=== PATIENT | male | born 1945 | race Caucasian/White ===

== ENCOUNTER 2018-05-16 11:55 | Emergency (ER) | payer MEDICARE ==
[~2018-05-16] VITALS: Ht 172.7 cm; Wt 63.6 kg
[~2018-05-16 11:55] MED LIST: CALC600T12 PO; CHOL2000 PO; FAMO-1 PO; MAGN125C PO; MULT-1085 PO; SIMV10TA6 PO
[2018-05-16] MEDS ORDERED: PANT-47 PO (13:22)
[2018-05-16] MEDS ORDERED: CALCIUM CITRATE (13:22)
[2018-05-16] MEDS ORDERED: MAGN296S68 CORPAK (13:23)
[2018-05-16] MEDS ORDERED: ZOLE5INF7 IV (13:24)
[2018-05-16] MEDS ORDERED: TEST5GEL2 TOP (13:26)
[2018-05-16] MEDS ORDERED: cyclobenzaprine 10mg tablet PO ONE (14:35)
[2018-05-16] MEDS ORDERED: ketorolac trometh inj. 60 MG/2 ML VIAL IM ONE (14:35)
[2018-05-16 15:06] VITALS: BP 155/89
[2018-05-16] MEDS ORDERED: CYCL-1 PO (15:30)
== END 2018-05-16 15:52 | disposition home or self-care (01) ==
LOC: ER 11:56
DX: M25.552 Pain in left hip (principal)
CPT/HCPCS: 72192; 73502; 96372; 99284; J1885

== ENCOUNTER 2019-07-10 06:39 | Day surgery (SDC) | payer MEDICARE ==
[~2019-07-10] VITALS: Ht 170.2 cm; Wt 59.9 kg
[~2019-07-10 06:39] MED LIST changes: +CALC-854 PO; -CALC600T12 PO; +CHOL10002 PO; -CHOL2000 PO; +DOCU-148 PO; +FISH1CAP15 PO; +FLUT16SP2 BOTHNARES; +LUTE1CAP4 PO; +MAGN100T6 PO; -MAGN125C PO; +MONT10TA26 PO; +PANT-47 PO; +POLY17PO10 PO; +PSYL0.4C2 PO; -SIMV10TA6 PO; +TEST5GEL2 TOP; +UBID50TA3 PO; +WHEA98PO PO; +ZOLE5INF7 IV
[2019-07-10 07:15] VITALS: BP 130/84
[2019-07-10] MEDS ORDERED: albumin 25% 100mL bottle x 1 IV PRN (07:15)
[2019-07-10] MEDS ORDERED: normal saline 1000ml 1,000 ML IV PRN (07:15)
[2019-07-10] MEDS ORDERED: DENO60DI SUBCUT (07:22)
[2019-07-10] MEDS ORDERED: FERR240T15 PO (07:24)
== END 2019-07-10 08:31 | disposition home or self-care (01) ==
LOC: SSTAY O 06:39
PROVIDERS: ATTEND Radiology Vascular & Interventional Radiology
DX: R18.8 Other ascites (principal); R14.0 Abdominal distension (gaseous); K21.9 Gastro-esophageal reflux disease without esophagitis; D50.9 Iron deficiency anemia, unspecified; E78.5 Hyperlipidemia, unspecified; I50.9 Heart failure, unspecified; Z85.828 Personal history of other malignant neoplasm of skin; Z79.899 Other long term (current) drug therapy
CPT/HCPCS: 76705

== ENCOUNTER 2019-07-30 10:03 | Day surgery (SDC) | payer MEDICARE ==
[2019-07-29 09:41] LABS: BASOPHILS % (AUTO) 0.7 % (0-1); EOSINOPHILS % (AUTO) 0.5 % (0-6); HEMATOCRIT 39.1 % (42.0-52.0); HEMOGLOBIN 13.6 g/dl (14.0-17.9); LYMPHOCYTES # (AUTO) 0.7 X10'3 (1.1-4.8); LYMPHOCYTES % (AUTO) 22.1 % (21-51); MEAN CORPUSCULAR HEMOGLOBIN 35.1 PG (27.0-31.0); MEAN CORPUSCULAR HGB CONC 34.7 g/dL (33.0-36.5); MEAN CORPUSCULAR VOLUME 101.1 FL (78-98); MEAN PLATELET VOLUME 7.5 FL (7.4-10.4); MONOCYTES # (AUTO) 0.2 X10'3 (0-0.9); MONOCYTES % (AUTO) 6.8 % (2-12); NEUTROPHILS # (AUTO) 2.2 X10'3 (1.8-7.7); NEUTROPHILS % (AUTO) 69.9 % (42-75); PLATELET COUNT 215 X10'3 (140-440); RED BLOOD COUNT 3.86 X10'6 (4.70-6.10); RED CELL DISTRIBUTION WIDTH 13.3 % (11.5-14.5); WHITE BLOOD COUNT 3.1 X10'3 (4.5-11.0)
[2019-07-29 09:48] LABS: ANION GAP 3 (8-16); BLOOD UREA NITROGEN 23 MG/DL (7-18); BUN/CREATININE RATIO 20.5 (5.4-32.0); CALCIUM 8.5 MG/DL (8.5-10.1); CHLORIDE 96 MMOL/L (99-107); CREATININE 1.12 MG/DL (0.60-1.10); GLUCOSE 81 MG/DL (70-104); POTASSIUM 4.3 MMOL/L (3.5-5.1); SODIUM 134 MMOL/L (135-145); TOTAL CARBON DIOXIDE 34.8 MMOL/L (24-32); eGFR 64 ML/MIN
[2019-07-29 09:52] LABS: PARTIAL THROMBOPLASTIN TIME 30 SECONDS (22-32)
[2019-07-30] VITALS (12 sets, daily range): BP systolic 120–156; BP diastolic 37–107
[~2019-07-30] VITALS: Ht 170.2 cm; Wt 61.2 kg
[~2019-07-30 10:03] MED LIST changes: +DENO60DI SUBCUT; +FERR240T15 PO; -PANT-47 PO; -UBID50TA3 PO; -ZOLE5INF7 IV
[2019-07-30] MEDS ORDERED: LORazepam 0.5 MG tablet PO PRN (10:35)
[2019-07-30] MEDS ORDERED: normal saline 1,000 ML IV SCH (10:35)
[2019-07-30] MEDS ORDERED: diphenhydrAMINE 25mg capsule PO PRN (10:35)
[2019-07-30] MEDS ORDERED: LIDOcaine/PRILOcaine 5gm cream TP STA (11:56)
[2019-07-30] MEDS ORDERED: verapamil 2.5 mg/ml inj IV ONE (12:37)
[2019-07-30] MEDS ORDERED: LIDOcaine 1% (10mg/ml)w/preservative injection 20ml MDV ONE (12:37)
[2019-07-30] MEDS ORDERED: fentaNYL/PF 50MCG/1 ML 2ML syringe ONE (12:37)
[2019-07-30] MEDS ORDERED: midazolam 2 mg/2 ml injection ONE (12:37)
[2019-07-30] MEDS ORDERED: iohexol 350 MG/ML 50ML vial IV ONE (12:38)
[2019-07-30] MEDS ORDERED: heparin 1,000unit/ml 10ml vial 10 ML ONE (12:38)
[2019-07-30] MEDS ORDERED: iohexol 350MG/ML 100ml bottle IV ONE ×2 (12:38→13:38)
[2019-07-30] MEDS ORDERED: nitroGLYCERIN-Tridil 50MG/D5W 250 ML IV ONE (12:38)
[2019-07-30] MEDS ORDERED: VITC500T PO (12:55)
[2019-07-30] MEDS ORDERED: FURO-150 PO (12:55)
[2019-07-30] MEDS ORDERED: SPIR25TA PO (12:55)
[2019-07-30 13:36] LABS: ISTAT Hct MIX 34 %PCV (42-52); ISTAT O2 SATURATION MIX VENOUS 73 % (60-80); ISTAT SOURCE MIX
[2019-07-30 13:36] LABS: ISTAT HGB ART 11.9 g/dl (14.0-18.0); ISTAT Hct ART 35 %PCV (42-52); ISTAT O2 SATURATION ARTERIAL 96 % (95-98); ISTAT SOURCE ART
== END 2019-07-30 19:00 | disposition home or self-care (01) ==
LOC: SSTAY O 10:03
PROVIDERS: ATTEND Internal Medicine Cardiovascular Disease
DX: R94.39 Abnormal result of other cardiovascular function study (principal); I25.10 Atherosclerotic heart disease of native coronary artery without angina pectoris; E78.5 Hyperlipidemia, unspecified; I49.5 Sick sinus syndrome; Z95.0 Presence of cardiac pacemaker
CPT/HCPCS: 36415; 80048; 82803; 85014; 85025; 85610; 85730; 93005; 93460; 99152; 99153; C1769; C1894; J1644; J2001; J2250; J3010; J7030; J7040; Q0163; Q9967; A4620; A5120; A6258; J3490